=== PATIENT | male | born 1965 | race Caucasian/White ===

== ENCOUNTER → 2024-01-15 14:15 | Outpatient (REF) | payer BC, SELFPAY | LOC: RAD 14:15 | PROVIDERS: ATTENDING PHYSICIAN Family Medicine | DX: F17.210 Nicotine dependence, cigarettes, uncomplicated (principal) | CPT/HCPCS: 71271 ==

== ENCOUNTER 2024-09-13 09:55 | Emergency (ER) | payer BC, SELFPAY ==
[2024-09-13 09:57] VITALS: BP 162/114
--- NOTE | 2024-09-13 10:45 | ED.GENMED ---
History of Present Illness
General
Chief Complaint: Foreign Body Removal
Source: patient
Exam Limitations: none
Time Seen by Provider: 09/13/24 10:26
Nursing documentation reviewed up to this point in time: agreed with
History of Present Illness
History of Present Illness:
pt is a 58 y/o M
h/o RA on embrel
also uses testosterone
did a R subcutaneous testosterone injection in R prox thigh angling the needle toward his knee and the needle broke off in his leg; whih is a 25 g and approx 1 inch in length
he cannot feel it or feel any pain
there is no puncture wound
no bleeding
full rom
Past History
Past History
ED Past Medical History: Other (RA, low testosterone)
Social History
Tobacco: Smoker
Review of Systems
Review of Systems
Allergies reviewed?: Yes
All Other Systems: Not applicable
Phy Exam
Physical Exam
Physical Exam:
GENERAL: Alert , in no apparent distress, comfortable at rest
HEAD: NCAT
CV: 2+ DP PULSES B/L
NEUROLOGICAL: Alert and oriented, no focal neuro deficits, , 5/5 strength, sensation intact, ambulation slight limp right leg
SKIN: Warm and dry, no puncture wounds, ,redness; nontender
MUSCULOSKELETAL: R prox ant thigh with no tenderness, skin chnages, puncture site;
full ROM of the leg
PSYCH: Normal and appropriate interaction.
Course
Orders/Labs/Results
Orders:
Orders
09/13/24 10:15
Femur, Right 2 View [CR Femur - Right Min 2 Vw] Urgent
Comment:
Reason For Exam: fb
Vital Signs
Initial and Last Documented VS:
Initial Vital Signs
Temp Pulse Resp BP Pulse Ox
36.8 C 74 20 162/114 98
09/13/24 09:57 09/13/24 09:57 09/13/24 09:57 09/13/24 09:57 09/13/24 09:57
Last Documented Vital Signs
Temp Pulse Resp BP Pulse Ox
36.8 C 71 16 143/104 95
09/13/24 09:57 09/13/24 11:23 09/13/24 11:23 09/13/24 11:23 09/13/24 11:23
MDM/Problems Addressed
Differential Diagnosis Includes:
retained fb, med screening exam
MDM/Problems Addressed:
58 y/o M
uses subcutneous testosterone prescribed
injected today using a 25g 1.25 inch needle and when he looked afterward, the needle was missing from the plastic tip and he believes it was retained under skin
no wounds
nontender
on exam normal
otherise mild htn, history of
xray indep reviewed by me and i spoke with radiologist, sent photo of what the needle looks like
it appears it is not under the skin
it should be radioopaque
and it is not visible
likely fell on the floor
d/c home
*Critical Care Note
Total Time (30-74mins, 75-104mins- exclusive of procedures): Not Applicable
ED Attending Note
-
Portions of this chart may have been created with voice recognition software.� Occasional wrong word or��sound alike� substitutions may have occurred due to the inherent limitations of voice recognition software.
Discharge Plan
Departure
Patient Disposition: Home (Routine Discharge)
Patient with high blood pressure during this ER visit?: Yes
Condition: Fair
Covid-19: Not Applicable
Discharge Problem:
Encounter for medical screening examination
Instructions: BLOOD PRESSURE
Prescriptions:
No Action
ondansetron 4 mg tablet,disintegrating
4 mg PO Q8H PRN (Reason: nausea and vomiting) Qty: 7 0RF
Referrals:
Phillip Salgado DO [Family Provider] -
Activity Restrictions/Additional Instructions:
WE SEE NO EVIDENCE ON IMAGING THAT THERE IS A NEEDLE IN YOUR THIGH
YOU CAN FOLLOW UP WITH YOUR DOCTOR NEEDED
IT IS LIKELY ON THE FLOOR SOMEWHERE NEAR WHERE YOU INJECTED SO BE CAREFUL WALKING AROUND
YOUR BLOOD PRESSURE WAS ELEVATED TODAY.
Interventions
Interventions:
*Risk Screen - Suicide Last Done: 09/13/24 09:57
*General Assessment Last Done: 09/13/24 09:57
*Neglect/Abuse Screening Last Done: 09/13/24 09:57
ED- Fall Risk Assessment Last Done: 09/13/24 10:06
*ED COVID-19 Vaccine History Last Done: 09/13/24 09:57
*Nursing Disposition Last Done: 09/13/24 11:28
Discharge Date and Time
Discharge Date/Time: 09/13/24 11:28
Print Language: ZAMBIAN
[2024-09-13 11:23] VITALS: BP 143/104
== END 2024-09-13 11:28 | disposition home or self-care (01) ==
LOC: EMR 09:55
PROVIDERS: EMERGENCY PHYSICIAN Emergency Medicine; FAMILY PHYSICIAN Family Medicine
DX: Z03.89 Encounter for observation for other suspected diseases and conditions ruled out (principal); I10 Essential (primary) hypertension; M06.9 Rheumatoid arthritis, unspecified; E78.5 Hyperlipidemia, unspecified; E11.9 Type 2 diabetes mellitus without complications; Z96.643 Presence of artificial hip joint, bilateral; Z79.899 Other long term (current) drug therapy; Z88.1 Allergy status to other antibiotic agents; Z91.040 Latex allergy status
CPT/HCPCS: 99283; 73552

== ENCOUNTER → 2024-12-11 08:39 | Outpatient (REF) | payer BC, SELFPAY | LOC: RSP 08:39 | DX: Z72.0 Tobacco use (principal); R06.02 Shortness of breath | CPT/HCPCS: 94727; 94729; 88738; 94010 ==

== ENCOUNTER → 2025-01-16 09:18 | Outpatient (REF) | payer OTHER, SELFPAY | LOC: HWRAD 09:18 | PROVIDERS: ATTENDING PHYSICIAN Family Medicine | DX: Z87.891 Personal history of nicotine dependence (principal) | CPT/HCPCS: 71271 ==

== ENCOUNTER → 2025-03-20 10:29 | Outpatient (REF) | payer OTHER, SELFPAY | LOC: RCS 10:29 | PROVIDERS: ATTENDING PHYSICIAN Family Medicine | DX: R06.09 Other forms of dyspnea (principal) | CPT/HCPCS: 93017 ==